=== PATIENT | female | born 2000 | race Caucasian/White ===

== ENCOUNTER 2025-01-10 21:50 | Emergency (ER) | payer OTHER, SELFPAY ==
[2025-01-10 21:52] VITALS: BP 179/97; PULSE 137; RESP 18; TEMP 36.4; O2SAT 100; BMI 28.4
--- NOTE | 2025-01-10 22:05 | ED.VIS.CHEST ---
HPI <Dr. Chad Shah MD - Last Filed: 01/10/25 22:58> History of Present Illness Chief Complaint: Chest Pain Detail of Chief Complaint: Chest tightness, shortness of breath Informant: patient and parent Onset/Context/Timing Onset: Today and Hours (2 hours prior to arrival) Activity at onset: sudden Timing: Continuous Quality: Positive for Pressure and Tightness Location: Substernal Current Severity: Moderate Maximum Severity: Severe Worsened By: Breathing (There is a pleuritic component as well); Not Worsened By Exertion, Movement of Arm, Movement of Torso, Eating, Palpation or Coughing Relieved By: Nothing Associated Symptoms: Positive for Dyspnea, Lightheadedness and Palpitations; Negative for Nausea, Vomiting, Diaphoresis, Fever or Acid Reflux Narrative Narrative: Patient is a 24-year-old female. She has no significant past medical history. Mother has history of tachycardia. She presents because of abrupt onset of chest tightness substernal shortness of breath and dyspnea on exertion. She denies fever, chills night sweats. She denies headache, visual, ocular auditory symptoms. She does endorse shortness of breath and increased shortness of breath with walking. She denies pain radiating to her extremities or left trapezius area. She denies pain rating through to her back. She denies black or maroon-colored stool. She does endorse lightheadedness. There is no history of VTE. She has no risk factors for VTE. Prior Similar Symptoms: No Recent Illness/Hospitalization: No CVD Risk Factors: Negative for Hypertension, Diabetes, Hypercholesterolemia, Family History 1' </=55 or Smoking PE Risk Factors: Negative for Recent Travel/Surgery, Recent Immobilization, Prior DVT or PE, Cancer or OCP + Smoking + >/=35 TAD Risk Factors: Negative for Marfan's Syndrome, Hypertension or Family History PFSH <Dr. Chad Shah MD - Last Filed: 01/10/25 22:58> PFSH Medical History no medical history no medical history Allergy/AdvReac Type Severity Reaction Status Date / Time No Known Allergies Allergy Verified 01/10/25 21:52 Family History other other (Father history is unknown. Mother has history of tachycardia) Surgical History no surgical history no surgical history Social History (Updated 01/10/25 @ 22:[address] Chad Shah MD) household members: family Smoking Status: Never smoker ROS <Dr. Chad Shah MD - Last Filed: 01/10/25 22:58> ROS ED Constitutional Constitutional ED: Reports other Details: Patient reports recent weight gain. ; Denies chills, fever(s), subjective, sweats or weight loss Eyes Eyes: Reports none ENT ENT ED: Denies ear pain, rhinorrhea or sore throat Cardiovascular Cardiovascular: Reports as per HPI; Denies orthopnea or paroxysmal nocturnal dyspnea Respiratory/Chest Respiratory/Chest: Reports dyspnea and dyspnea on exertion; Denies cough, orthopnea, paroxysmal nocturnal dyspnea or sputum Gastrointestinal Gastrointestinal: Denies abdominal pain, constipation, diarrhea, melena, nausea or vomiting Genitourinary Genitourinary ED: Denies dysuria, hematuria or urinary frequency Musculoskeletal Musculoskeletal: Denies arthralgias, back pain or myalgias Integumentary Denies rash Neurologic Neurologic: Denies headache(s), paresthesias or weakness Psychiatric Psychiatric: Reports anxiety; Denies depression Endocrine Endocrinology: Denies cold intolerance or heat intolerance Hematologic/Lymphatic Hematologic/Lymphatic: Denies easy bleeding or easy bruising EXAM <Dr. Chad Shah MD - Last Filed: 01/10/25 22:58> Physical Exam Const Vital Signs: 01/10/25 21:52 01/10/25 22:50 01/10/25 22:51 Temperature 97.5 F L Temperature Source Temporal Pulse Rate 137 H 98 Respiratory Rate 18 20 H Respiratory Effort Normal Blood Pressure 179/97 H 147/72 H Blood Pressure Mean 124 97 Pulse Ox 100 100 Oxygen Delivery Method Room Air Room Air 01/10/25 23:00 01/11/25 00:00 01/11/25 01:00 Temperature Temperature Source Pulse Rate 96 107 H 99 Respiratory Rate 15 20 H 22 H Respiratory Effort Blood Pressure 134/84 H 117/74 124/88 H Blood Pressure Mean 100 88 100 Pulse Ox 100 100 99 Oxygen Delivery Method Room Air Room Air Room Air Positive well nourished and well developed Constitutional Narrative: Patient is a appears in no distress. Her vitals are remarkable for blood pressure 179/97, heart rate of 137. She is not tachypneic nor she hypoxic. General Appearance ED: well developed; Negative for pallor HEENT Reports moist mucous membranes normocephalic and atraumatic Eyes PERRL and EOMs intact bilaterally General Eye ED: Negative for pale conjunctiva or scleral icterus Neck no lymphadenopathy, supple and no JVD Chest Wall palpation of chest normal Resp normal respiratory effort and clear to auscultation bilaterally Cardio regular rhythm, S1 normal heart sound, S2 normal heart sound and no murmurs Rate: tachycardic Peripheral Pulses: pulses 2+ throughout GI normal to inspection, nondistended, normoactive bowel sounds, soft to palpation, non-tender, non-distended and no masses; Negative for hepatosplenomegaly Back/Spine no CVA tenderness Extremity normal to inspection Extremity Narrative: There is no asymmetry, swelling, discoloration, leg vein distention, palpable cords or tenderness along the distribution of the deep venous system. General Extremety ED: Negative for edema, pulses abnormal or tenderness General Extremity: Negative for edema or pulses abnormal Neuro oriented x3, CN's II-XII intact bilaterally and no sensory deficits noted Sensorium / Orientation: awake and alert Motor Exam: strength 5/5 throughout Psych mental status grossly normal Skin no rashes or lesions noted and no wounds General Skin Exam: Negative for jaundice or pallor <Dr. Marito Trimble DO - Last Filed: 01/11/25 01:37> Physical Exam Const Vital Signs: 01/10/25 21:52 01/10/25 22:50 01/10/25 22:51 Temperature 97.5 F L Temperature Source Temporal Pulse Rate 137 H 98 Respiratory Rate 18 20 H Respiratory Effort Normal Blood Pressure 179/97 H 147/72 H Blood Pressure Mean 124 97 Pulse Ox 100 100 Oxygen Delivery Method Room Air Room Air 01/10/25 23:00 01/11/25 00:00 01/11/25 01:00 Temperature Temperature Source Pulse Rate 96 107 H 99 Respiratory Rate 15 20 H 22 H Respiratory Effort Blood Pressure 134/84 H 117/74 124/88 H Blood Pressure Mean 100 88 100 Pulse Ox 100 100 99 Oxygen Delivery Method Room Air Room Air Room Air MDM <Dr. Chad Shah MD - Last Filed: 01/10/25 22:58> [facility] Narrative Medical decision making narrative: Differential diagnosis would be myocarditis, pulmonary embolus, anxiety, unlikely coronary artery disease. With her elevated blood pressure need to consider thoracic aortic dissection. She does not have back pain. Lower extremity exam is not suggestive or consistent with DVT. With her having weight gain I would go against hyperthyroidism. She Lab Data Attestation: I reviewed the patient's lab results. Lab results narrative: Lactate is nondetectable. Labs: Laboratory Results - last 24 hr 01/10/25 01/10/25 01/10/25 22:13 22:30 22:47 WBC 9.7 RBC 3.99 L Hgb 11.0 L Hct 33.7 L MCV 84.5 MCH 27.6 MCHC 32.6 RDW Std Deviation 39.7 RDW Coeff of Ze 13.0 Plt Count 334 MPV 9.5 Immature Gran % (Auto) 0.200 Neut % (Auto) 67.5 Lymph % (Auto) 21.9 [place] % (Auto) 10.0 Eos % (Auto) 0.0 Baso % (Auto) 0.4 Absolute Neuts (auto) 6.6 Absolute Lymphs (auto) 2.13 Nucleated RBC % 0 D-Dimer Quant (PE/DVT) < 0.27 L Sodium 138 Potassium 3.2 L Chloride 105 Carbon Dioxide 20.3 L Anion Gap 13 BUN 6 Creatinine 0.72 Estim Creat Clear Calc 117.14 Est GFR (MDRD) Non-Af 122 BUN/Creatinine Ratio 8.0 L Glucose 101 H Lactic Acid < 1.0 Calcium 9.1 Troponin T High Sens < 6 Troponin T Hi Sens 2 Hr TSH 1.210 Serum , Qual NEGATIVE 01/11/25 00:47 WBC RBC Hgb Hct MCV MCH MCHC RDW Std Deviation RDW Coeff of Ze Plt Count MPV Immature Gran % (Auto) Neut % (Auto) Lymph % (Auto) [place] % (Auto) Eos % (Auto) Baso % (Auto) Absolute Neuts (auto) Absolute Lymphs (auto) Nucleated RBC % D-Dimer Quant (PE/DVT) Sodium Potassium Chloride Carbon Dioxide Anion Gap BUN Creatinine Estim Creat Clear Calc Est GFR (MDRD) Non-Af BUN/Creatinine Ratio Glucose Lactic Acid Calcium Troponin T High Sens Troponin T Hi Sens 2 Hr < 6 TSH Serum , Qual Radiography Chest X-Ray - ED: 2 View, Read by ED Physician (Independent reviewed interpreted by me at 2227), Normal, Heart, Lungs, Mediastinum, Bony Structures and No Acute Disease Diagnostic Testing: Clinical Impression(s) from Imaging Studies Chest X-Ray 01/10/25 22:13 IMPRESSION: No acute cardiopulmonary disease. Reading Location: [facility] EKG Initial EKG: Attestation: I personally reviewed and interpreted this EKG as follows: Interpretation: Sinus Tachycardia (Rate is 139. Parable is 112 ms. Cures duration 80 ms. QT duration 360 ms. [place] is normal. There is some nonseptic changes noted.) Differential Diagnosis Chest pain/SOB: pulmonary embolism Reason(s) PE less likely: Positive for not hypoxic; Negative for PERC negative, not tachycardic or patient taking oral anticoagulants, ACS ACS: Positive for EKG without ischemia, pneumothorax Reason(s) pneumothorax less likely: Negative for bilateral breath sounds or [employer] withhout PTX and pneumonia Reason(s) pneumonia less likely: Positive for no noted fever and symptoms not consistent with acute infection Treatment and Re-Evaluation :: Patient's care was transitioned to the night physician. Disposition will be made after blood work has returned. The night physician was made aware of patient's history, physical and results as of 2256. <Dr. Marito Trimble, DO - Last Filed: 01/11/25 01:37> [facility] History & Record Review Discussion w/independent historian: Patient and Family Lab Data Labs: Laboratory Results - last 24 hr 01/10/25 01/10/25 01/10/25 22:13 22:30 22:47 WBC 9.7 RBC 3.99 L Hgb 11.0 L Hct 33.7 L MCV 84.5 MCH 27.6 MCHC 32.6 RDW Std Deviation 39.7 RDW Coeff of Ze 13.0 Plt Count 334 MPV 9.5 Immature Gran % (Auto) 0.200 Neut % (Auto) 67.5 Lymph % (Auto) 21.9 [place] % (Auto) 10.0 Eos % (Auto) 0.0 Baso % (Auto) 0.4 Absolute Neuts (auto) 6.6 Absolute Lymphs (auto) 2.13 Nucleated RBC % 0 D-Dimer Quant (PE/DVT) < 0.27 L Sodium 138 Potassium 3.2 L Chloride 105 Carbon Dioxide 20.3 L Anion Gap 13 BUN 6 Creatinine 0.72 Estim Creat Clear Calc 117.14 Est GFR (MDRD) Non-Af 122 BUN/Creatinine Ratio 8.0 L Glucose 101 H Lactic Acid < 1.0 Calcium 9.1 Troponin T High Sens < 6 Troponin T Hi Sens 2 Hr TSH 1.210 Serum , Qual NEGATIVE 01/11/25 00:47 WBC RBC Hgb Hct MCV MCH MCHC RDW Std Deviation RDW Coeff of Ze Plt Count MPV Immature Gran % (Auto) Neut % (Auto) Lymph % (Auto) [place] % (Auto) Eos % (Auto) Baso % (Auto) Absolute Neuts (auto) Absolute Lymphs (auto) Nucleated RBC % D-Dimer Quant (PE/DVT) Sodium Potassium Chloride Carbon Dioxide Anion Gap BUN Creatinine Estim Creat Clear Calc Est GFR (MDRD) Non-Af BUN/Creatinine Ratio Glucose Lactic Acid Calcium Troponin T High Sens Troponin T Hi Sens 2 Hr < 6 TSH Serum , Qual Radiography Diagnostic Testing: Clinical Impression(s) from Imaging Studies Chest X-Ray 01/10/25 22:13 IMPRESSION: No acute cardiopulmonary disease. Reading Location: [facility] Chest x-ray as interpreted by the emergency medicine physician reveals no acute infiltrate pneumothorax pleural effusion or widening the mediastinum Treatment and Re-Evaluation :: Patient's care was transitioned to the night physician. Disposition will be made after blood work has returned. The night physician was made aware of patient's history, physical and results as of 2256. The patient was signed out to me while awaiting her laboratory studies. Patient's initial and delta troponin were less than 6 going against acute coronary syndrome or myocarditis. Her troponin was less than 0.27 going against pulmonary embolus or dissection. Her TSH is normal going against thyroid storm. I did elect to order a catecholamine level as mother reported that the patient's aunt was worked up for pheochromocytoma; however this was reportedly negative. Without any medication the patient's hypertension and heart rate spontaneously improved. However when I walked into the room to go over results her heart rate would increase from normal and approximately 85-90 up to 120-130. This would indicate that her symptoms are most likely stimulated by anxiety. We did discuss potentially starting antianxiety medication but the patient does not want to proceed with medication at this time. I will order an event monitor to ensure that her symptoms are truly sinus tachycardia from anxiety and not a cardiac dysrhythmia. However at this time her symptoms and vitals have spontaneously improved her overall workup is negative and therefore there is no need for further intervention in the ER and she is otherwise safe for discharge. Discharge Plan Triage Chief Complaint: Chest Pain ED Provider: Chad Shah Dx/Rx/DC Orders Clinical Impression: Sinus tachycardia, Anxiety, Elevated blood pressure reading Instructions: Your Heart's Electrical System, Understanding Tachycardia Other Ambulatory Orders: 14 Day Event Recorder Preventi (Urgent) Timeframe: 1 Day Facility: [facility] - Location: Cardiovascular Services Ordered By: Dr. Marito Trimble Primary Care Provider: Care Physician,No Primary Referrals: Mark Beyer MD [Med Staff - Active Staff, Cardiology] Referral Note: Tachycardia Vamshi Mckeon MD [Med Staff - Active Staff, Family Practice] Care Physician,No Primary [Primary Care Provider, Medical] Activity Restrictions/Additional Instructions: The event monitor should be mailed to your house within the next few days. Please wear this as directed for the next 14 days to assess your heart rhythm and rate and ensure you are not going into or out of an abnormal heart rhythm. You can follow-up with Dr. Beyer/cardiology for repeat evaluation regarding your symptoms and to discuss if you need a rate control medication such as metoprolol. Follow-up with your family doctor or Dr. Mckeon for further evaluation as well and to discuss if there is need for antianxiety medication such as BuSpar or hydroxyzine. If you have any further concerns please return to the ER for repeat evaluation Print Language: Upper Sorbian Disposition Disposition: Home, Self Care
--- NOTE | 2025-01-10 22:13 | RAD_ITS ---
PROCEDURE: RAD/Chest PA and Lateral
[2025-01-10 22:51] VITALS: BP 147/72; PULSE 98; RESP 20; O2SAT 100
[2025-01-10 23:00] VITALS: BP 134/84; PULSE 96; RESP 15; O2SAT 100
[2025-01-10 23:01] LABS: Internal QC Validated? YES +Cl - CLEAR BKGD; Pregnancy, Serum, hCG Quali. NEGATIVE Negative; Record Kit Lot#, Serum Preg. 0000980607
[2025-01-10 23:01] LABS: Hematocrit 33.7 % (37-47); Hemoglobin 11.0 g/dL (12.0-15.0); Immature Granulocytes Count 0.020 X10^3/uL (0.0-0.0); Mean Corp Hgb Conc 32.6 g/dL (32-36); Mean Corpuscular Volume 84.5 fL (81-99); Mean Platelet Vol. 9.5 fl (6.2-12.0); NRBC Flagged by Analyzer 0 % (0-5); Platelet Count 334 K/mm3 (150-450); RBC Distribution Width CV 13.0 % (11.6-14.6); RBC Distribution Width SD 39.7 fl (35.1-43.9); Red Blood Count 3.99 M/mm3 (4.2-5.4); White Blood Count 9.7 K/mm3 (4.4-11.0)
[2025-01-10 23:12] LABS: Troponin T High Sensitivity < 6 ng/L (<=14)
[2025-01-10 23:23] LABS: Anion Gap 13 (5-15); BUN 6 mg/dL (4-19); BUN/Creat Ratio 8.0 RATIO (10-20); Calcium,Total 9.1 mg/dL (7.6-11.0); Carbon Dioxide 20.3 mmol/L (21.0-32.0); Chloride 105 mmol/L (98-108); Estimated Creatinine Clearance 117.14 ml/min (50-250); Glucose 101 mg/dL (70-99); Potassium 3.2 mmol/L (3.3-5.1)
[2025-01-10 23:55] LABS: D-Dimer Quantitative (DVT/PE) < 0.27 FEU/ug/m (0.27-0.49)
[2025-01-11] VITALS: BP 117/74; PULSE 107; RESP 20; O2SAT 100
[2025-01-11 01:00] VITALS: BP 124/88; PULSE 99; RESP 22; O2SAT 99
[2025-01-11 01:13] LABS: Troponin T High Sens 2 HR < 6 ng/L (<=14)
[2025-01-11 01:35] VITALS: BP 124/88; PULSE 96; RESP 19; TEMP 36.6; O2SAT 99
[2025-01-15 12:08] LABS: Dopamine, Pl <10.0 pg/mL (0.0-36.7); Epinephrine, Pl 115.6 pg/mL (0.0-55.4); Norepinephrine, Pl 403 pg/mL (115-524)
== END 2025-01-11 01:39 | disposition home or self-care (01) ==
PROVIDERS: Emergency Medicine; Emergency Provider Emergency Medicine; Visit Provider Emergency Medicine
DX: R00.0 Tachycardia, unspecified (principal); R07.89 Other chest pain; F41.9 Anxiety disorder, unspecified; R03.0 Elevated blood-pressure reading, without diagnosis of hypertension; Z86.79 Personal history of other diseases of the circulatory system
CPT/HCPCS: 71046; 80048; 82384; 83605; 84443; 84484; 84703; 85025; 85379; 93005; 99284; A4216